=== PATIENT | male | born 1980 | race Caucasian/White ===

== ENCOUNTER 2019-12-30 10:55 | Outpatient (CLI) | payer BC, SELFPAY ==
[2019-12-31 14:27] LABS: COVID-19 RT-PCR Result NEGATIVE (Negative)
== END 2019-12-30 11:15 ==
PROVIDERS: Visit Provider Family Medicine
DX: Z11.59 Encounter for screening for other viral diseases (principal)
CPT/HCPCS: U0003

== ENCOUNTER 2020-04-13 03:16 | Outpatient (CLI) | payer BC, SELFPAY ==
[2020-04-13 09:18] LABS: ALT 67 U/L (16-63); AST 30 U/L (15-37); Albumin 4.5 g/dL (3.4-5.0); Alkaline Phosphatase 93 U/L (46-116); Anion Gap 7.3 mmol/L (3-11); BUN 12 mg/dL (7-18); Bilirubin, Total 1.2 mg/dL (0.2-1.0); CO2 28.7 mmol/L (21.0-32.0); CREATININE 0.96 mg/dL (0.70-1.30); Calcium 9.1 mg/dL (8.5-10.1); Calculated LDL 126 mg/dL (<100); Chloride 102 mmol/L (98-107); Cholesterol 191 mg/dL (<200); Glucose 104 mg/dL (74-106); HDL Cholesterol 50 mg/dL (40-60); Potassium 3.9 mmol/L (3.5-5.1); Sodium 138 mmol/L (136-145); Total Protein 7.5 g/dL (6.4-8.2); Triglyceride 75 mg/dL (<150)
== END 2020-04-13 03:36 ==
DX: Z00.00 Encounter for general adult medical examination without abnormal findings (principal); Z13.220 Encounter for screening for lipoid disorders
CPT/HCPCS: 36415; 80053; 80061

== ENCOUNTER 2020-09-17 20:43 | Outpatient (REF) | payer BC, SELFPAY ==
[2020-09-19 22:57] LABS: Campylobacter PCR Negative (Negative); Salmonella PCR Negative (Negative); Shiga Toxin PCR Negative (Negative); Shigella/Enteroinvasive Ecoli Negative (Negative)
== END 2020-09-17 20:44 | disposition home or self-care (01) ==
LOC: LBN 20:43
PROVIDERS: Visit Provider Nurse Practitioner Family
DX: R19.7 Diarrhea, unspecified (principal); A07.1 Giardiasis [lambliasis]
CPT/HCPCS: 87505; 87177

== ENCOUNTER 2020-10-14 15:08 | Outpatient (CLI) | payer BC, SELFPAY ==
--- NOTE | 2020-10-14 11:45 | DI.MRI_ITS ---
Exam(s) MR LUMBAR SPINE WO EXAM: MR LUMBAR SPINE WO CLINICAL HISTORY: M54.5 low back pain R15.9 fecal incontinenece. TECHNIQUE: Multiplanar multisequence MRI of the Lumbar spine was performed. COMPARISON: No exams were available for comparison FINDINGS: Bones: The last intervertebral disc space is designated the L5/S1 level for the numbering purpose of this examination. The vertebral body heights are well maintained. Alignment is satisfactory. The si gnal characteristics are unremarkable. Cord: The conus tip ends at the T12 level. It is of normal size and signal intensity. T12-L1: No disc herniations or bulges are present. Schmorl's node superior endplate T12. L1-2: No disc herniations or bulges are present. L2-3: No disc herniations or bulges are present. L3-4: No disc herniations or bulges are present. L4-5: No disc herniations or bulges are present. Minimal facet joint degenerative changes. L5-S1: Mild loss of disc height and partial disc desiccation. Small focal right paracentral disc pro trusion may contact the right S1 nerve root.. Soft tissues: The visualized SI joints and sacrum are well maintained. The paraspinal soft tissues ar e unremarkable. IMPRESSION: Small right paracentral disc protrusion at L5-S1. No evidence of significant spinal stenosis or neur oforaminal narrowing. DATA REPOSITORY:
== END 2020-10-14 15:28 ==
PROVIDERS: Visit Provider Nurse Practitioner
DX: M51.27 Other intervertebral disc displacement, lumbosacral region (principal); R15.9 Full incontinence of feces
CPT/HCPCS: 72148

== ENCOUNTER 2021-04-12 07:39 | Outpatient (CLI) | payer BC, SELFPAY ==
[2021-04-12 07:55] LABS: HCT 40.3 % (40.0-50.0); HGB 13.4 g/dL (13.5-17.5); MCH 31.2 pg (27.0-33.0); MCHC 33.3 % (32.0-36.0); MCV 93.9 fL (80-95); MPV 9.3 fL (8.0-11.0); Platelet Count 245 10^3/uL (130-400); RBC 4.29 10^6/uL (4.36-5.78); RDW 12.9 % (11.8-14.1); RDW-SD 44.6 fL; WBC 6.93 10^3/uL (4.4-10.8)
[2021-04-12 09:21] LABS: ALT 54 U/L (16-63); AST 59 U/L (15-37); Albumin 4.2 g/dL (3.4-5.0); Alkaline Phosphatase 131 U/L (46-116); Anion Gap 9.8 mmol/L (3-11); BUN 17 mg/dL (7-18); Bilirubin, Total 0.7 mg/dL (0.2-1.0); CO2 28.2 mmol/L (21.0-32.0); Chloride 104 mmol/L (98-107); Glucose 105 mg/dL (74-106); Potassium 4.3 mmol/L (3.5-5.1); Sodium 142 mmol/L (136-145); TSH (W/Ref FT4) 1.75 uIU/mL (0.36-3.74); Total Protein 7.6 g/dL (6.4-8.2)
[2021-04-12 09:59] LABS: Iron 110 ug/dL (65-175)
[2021-04-12 10:16] LABS: Ferritin 240 ng/mL (26-388)
== END 2021-04-12 07:40 | disposition home or self-care (01) ==
LOC: LBO 07:41
DX: R53.83 Other fatigue (principal); E03.9 Hypothyroidism, unspecified; G47.00 Insomnia, unspecified
CPT/HCPCS: 36415; 80053; 85027; 82728; 83540; 84443

== ENCOUNTER 2021-08-17 18:48 | Outpatient (CLI) | payer BC, SELFPAY ==
--- NOTE | 2021-08-17 12:15 | DI.RAD_ITS ---
Exam(s) XR CHEST 2V PA LATERAL EXAM: XR CHEST 2V PA LATERAL CLINICAL HISTORY: cough, reflux R05.9 TECHNIQUE: 2D digital imaging was performed. COMPARISON: No exams were available for comparison FINDINGS: MEDIASTINUM: Normal. HEART: Normal. PULMONARY VASCULATURE: Normal. LUNGS: Clear. PLEURAL SPACE: No pleural effusion or pneumothorax. BONE:Unremarkable for age. IMPRESSION: No acute abnormality. DATA REPOSITORY: RADIATION DOSE DELIVERED:
== END 2021-08-17 19:08 ==
PROVIDERS: Visit Provider Physician Assistant
DX: R05.8 Other specified cough (principal)
CPT/HCPCS: 71046

== ENCOUNTER 2021-09-26 02:26 | Outpatient (CLI) | payer BC, SELFPAY ==
[2021-09-26 12:12] LABS: Source Nasal/Nares
[2021-09-26 15:42] LABS: COVID-19 PCR Negative (Negative)
== END 2021-09-26 02:27 | disposition home or self-care (01) ==
LOC: LBO 02:26
PROVIDERS: Visit Provider Surgery
DX: Z20.822 Contact with and (suspected) exposure to COVID-19 (principal); Z01.818 Encounter for other preprocedural examination
CPT/HCPCS: 87635

== ENCOUNTER 2021-09-28 10:55 | Day surgery (SDC) | payer BC, SELFPAY ==
--- NOTE | 2021-09-27 11:04 | NUR.NOTE ---
Nursing Note: 09/27/21 Attempted to contact patient with preop information/questions; phone number provided not in service. Left voicemails for both primary and secondary contacts to provide alternate phone number for patient if available.
--- NOTE | 2021-09-28 06:55 | W.PM.ENDDOP ---
Date of service: 09/28/21 Time of Service: 12:44 Endoscopy Report DATE OF PROCEDURE: 09/28/21 PRE-OP DIAGNOSIS: GERD POST-OP DIAGNOSIS: same (with esophagitis) PROCEDURE: EGD with biopsies SURGEON: Teresita Amaya ANESTHESIA TYPE: General:No Airway ESTIMATED BLOOD LOSS: 2 PATHOLOGY: other (antrum bx, Distal esophagus bx) COMPLICATIONS: None DISPOSITION: same day INDICATIONS: Osvaldo is a pleasant 41-year-old gentleman with a history of reflux since about age 19.? He was on long-term PPI but he stopped it because of concerns of the side effects from long-term use.? He is taken Pepcid for the last week [id number] does not feel like that has helped him.? His reflux is pretty severe at this time with acid coming up into the back of his throat at nighttime.? He is already got a wedge pillow under his mattress.? We again discussed lifestyle changes and recommendation for repeat EGD to look for H. pylori.? If there is lot of inflammation and evidence of reflux then he may benefit from manometry and pH study for possible antireflux surgery. Risks, benefits and complications have been reviewed. Complications include but are not limited to bleeding, pain, perforation, sore throat, aspiration, and adverse reaction to the medications.? Questions were entertained and answered to their satisfaction and they wished to proceed. No guarantees were given or implied. Proceed with EGD under sedation PROCEDURE DESCRIPTION: After informed consent was obtained the patient was take to the procedure room and placed in a supine position. Monitors were applied and a time out was done. The patients name, date of , procedure type, allergies to medications and metal in their body was reviewed. A bite block was placed and the patient was sedated. Once sedated and comfortable the gastroscope was advanced through the oropharynx which was grossly normal into the esophagus. The proximal and mid-esophagus were normal. In the distal esophagus there was inflammation noted. The scope was advanced into the stomach and through the pylorus into the 3rd portion of the duodenum. The duodenum was noted to be normal. The scope was retracted back into the stomach and biopsies were done to rule out H. pylori. There were no ulcers. The scope was retroflexed. The cardia and fundus were noted to be normal. There was a small sliding hiatal hernia noted. The scope was retracted back into the esophagus and biopsies were done of the GE junction to rule out Florentino's. The Z line was regular. The GE junction was at 35 cm. The scope was removed and the patient was woken up and taken back to [facility] in stable condition. Follow up: I will start the patient on Omeprazole. Follow up in 2 weeks
--- NOTE | 2021-09-28 06:56 | W.PM.DSUDISC ---
Discharge Plan Disposition Patient Disposition: HOME Condition: Good Discharge Details Reason For Visit: EGD Attending Provider: Teresita Amaya Primary Care Provider: Amy Betancur Home Meds and New Rx's Prescriptions: New omeprazole 40 mg capsule,delayed release(DR/EC) 40 mg PO DAILY Qty: 30 3RF Continued loratadine [Claritin] 10 mg tablet 10 mg PO DAILY PRN (Reason: allergy symptoms) Qty: 90 3RF metformin 500 mg tablet 500 mg PO DAILY Label Comments: Prescribed by a provider through [facility] Ozempic 0.25 mg or 0.5 mg(2 mg/1.5 mL) pen injector 1 mg subcut QWEEK bupropion HCl 150 mg tablet sustained-release 12 hr 300 mg PO DAILY escitalopram oxalate [Lexapro] 20 mg Tablet 20 mg PO acetaminophen 500 mg Tablet 1,000 mg ibuprofen 200 mg Tablet 600 mg PO Q6H PRN Discharge Instructions Instructions: Diet for Stomach Ulcers and Gastritis (ED), Esophagitis (DC) Additional Instructions: Findings: inflammation in the esophagus due to reflux Follow up: 2 weeks in the office Please call if you develop: fevers >101.5 Nausea or Vomiting Abdominal pain that is not transient Rectal bleeding that is more then a tbsp A hard abdomen and inability to pass gas DAY SURGERY UNIT POST ENDOSCOPY INSTRUCTIONS Instructions for everyone who is given Anesthesia: For your safety, please do the following for the next 24 Hours: a. Do not drive or operate dangerous equipment b. Do not drink alcohol beverages or use any recreational drugs for the first 24 hours or while taking pain medications. The medications in your body may have a reaction that can be dangerous. c. Do not make any important decisions or sign any important papers 1. Generally there are no restrictions on your activity after a day or so has gone by, but you may feel a bit fatigued for a few days. 2. After you arrive home you may have a light meal and return to a normal diet as you can tolerate it without feeling sick to your stomach. 3. After surgery, you may feel pain or discomfort. This should be only transient, but if it persists please contact your doctor. 4. If there are any questions regarding the findings of your procedure, please feel free to contact your doctor. 6. If you are unable to contact your doctor with a problem, contact the hospital at [phone]. 7. Continue all your regular medications unless directed otherwise. I understand the above instructions and have no questions. Signature of Patient or Responsible Adult Escort Date/Time Name of Responsible Adult Escort Signature of Nurse Date/Time Referrals: Teresita Amaya MD [ [facility] STAFF PHYSICIAN] - Activity:: Activity as Tolerated Diet:: low acid Discharge Orders Discharge Orders: Discharge Order (Routine); Ordered 09/28/21 Ordered By: Teresita Amaya
[2021-09-28 11:10] VITALS: BP 137/83; PULSE 66; RESP 22; TEMP 36.2; O2SAT 98
[2021-09-28] MEDS: Lactated Ringers 1,000 ML 80 ML IV (11:15)
--- NOTE | 2021-09-28 11:34 | W.ANESPRE ---
General Info Date of Service Date Performed: 09/28/21 Height: 5 ft 11 in Weight: 112.5 kg Body Mass Index (BMI): 34.6 Surgical Procedure: Operation Date: 09/28/21 12:20 Proposed Procedure Side Surgeon p Gastroscopy Teresita Amaya MD Meds Allergies and Home Medications Allergies Allergy/AdvReac Type Severity Reaction Status Date / Time Environmental Allergy Intermediate Nasal Uncoded 09/28/21 11:18 congestion Home Medication Medication Instructions Recorded loratadine 10 mg tablet (Claritin) 10 mg PO DAILY PRN allergy 02/10/20 symptoms #90 tabs bupropion HCl 150 mg tablet,12 hr 300 mg PO DAILY 04/18/21 sustained-release metformin 500 mg tablet 500 mg PO DAILY intiated by 07/18/21 calibrate semaglutide 0.25 mg or 0.5 mg (2 1 mg subcut QWEEK Initiated by 07/18/21 mg/1.5 mL) subcutaneous pen calibrate - increased to 1mg last injector (Ozempic) acetaminophen 500 mg tablet 1,000 mg 09/28/21 escitalopram oxalate 20 mg tablet 20 mg PO 09/28/21 (Lexapro) ibuprofen 200 mg tablet 600 mg PO Q6H PRN 09/28/21 Current Visit Medications: Current Medications Generic Name Dose Route Start Last Admin Trade Name Jesus PRN Reason Stop Dose Admin Hyoscyamine Sulfate 0.125 mg 09/28/21 06:57 Hyoscyamine 0.125 Mg Sl/Oral/Chew SL DIRECTED PRN Ringer's Solution 1,000 mls @ 80 mls/hr 09/28/21 06:00 09/28/21 11:15 IV 10/27/21 23:59 80 mls/hr INFUSION FLORENCIA Administration IV Miscellaneous Supplies 1 each 09/28/21 06:00 Iv Access IV 10/27/21 23:59 DIRECTED FLORENCIA Ondansetron HCl 4 mg 09/28/21 06:57 Ondansetron 4 Mg/2 Ml Vial IVP Q4H PRN PRN Nausea / Vomiting Sodium Chloride 0 ml 09/28/21 06:00 Normal Saline Flush 10 Ml Syr IV 10/27/21 23:59 PRN PRN Sodium Chloride 0 ml 09/28/21 06:00 Normal Saline 10 Ml Vial IJ 10/27/21 23:59 DIRECTED PRN Sterile Water 0 ml 09/28/21 06:00 Water,Injection,Sterile 10 Ml Vial IJ 10/27/21 23:59 DIRECTED PRN PFSH Active Problems Active Problems: Problem Status Onset Code GERD (gastroesophageal reflux disease) K21.9 Obesity (BMI 30-39.9) E66.9 Medical History Medical History Acne vulgaris Anxiety and depression Elevated BP without diagnosis of hypertension Fatigue Fecal incontinence Increased body mass index (BMI) Low back pain PTSD (post-traumatic stress disorder) Seasonal allergies Urinary incontinence Surgical History Surgical History (Updated 09/28/21 @ 11:18 by Rocío Veliz RN) History of esophagogastroduodenoscopy (EGD) (~2018) Hx of knee surgery Left knee Hx of thumb surgery childhood, R thumb Tobacco Smoking/Tobacco Use Status: Never Second hand exposure: No Alcohol Alcohol Intake: current Alcohol intake frequency: a few times a week Alcohol type: beer Substance Use Substance use: Never Substance use type: does not use Vital Signs and Lab Results Vital Signs Most Recent Vital Signs in EMR: Most Recent Vital Signs Temp Pulse Resp BP Pulse Ox 36.2 C L 66 22 137/83 98 09/28/21 11:10 09/28/21 11:10 09/28/21 11:10 09/28/21 11:10 09/28/21 11:10 Lab Results Blood Type / Crossmatch: No Data to Display Complete Blood Count: No Data to Display Complete Metabolic Panel: No Data to Display Liver Function Panel: No Data to Display Coagulation Panel: No Data to Display Cardiac Panel: No Data to Display Arterial Blood Gas: No Data to Display Venous Blood Gas: No Data to Display Pancreas Panel: No Data to Display Thyroid Panel: No Data to Display Infectious Disease: Coronavirus (COVID-19)(PCR) Negative (Negative) 09/26/21 11:25 Coronavirus 2019 Source Nasal/Nares 09/26/21 11:25 Blood Cultures: No Data to Display Toxicology Panel: No Data to Display Anesthesia Assessment and Plan Anesthesia History Personal History: No History of Anesthesia Complications Family History: No Family History of Anesthesia Complications Exercise Tolerance Exercise Tolerance: Metabolic Equivalents>4 Pertinent Negatives Pertinent Negatives: No Symptoms of GERD (Feeling of fullness upper abdomen, Pepcid 20 mg IV at 1152), No Major Cardiovascular Symptoms or Complaints, No Major Pulmonary Symptoms or Complaints and No History of CVA/TIA Cardiac & Pulmonary Exam Cardiac Exam: Normal S1/S2 Heart Sounds Pulmonary Exam: Clear Bilateral Breath Sounds Implantable Cardiac Device Does patient have a Pacemaker or an ICD?: No Airway Exam Known Difficult Airway: No Mallampati Class: 2 Mouth Opening: Narrow (< 3cm) Thyromental Distance: Greater than 3 cm Facial Hair: Full [place] (Partial [place]) Neck Range of Motion: Full ROM Neck Circumference: Normal Teeth Condition: Normal Dentition (Broken crown left lower, nothing loose per pt. ) ASA Classification ASA Score: ASA 2 Emergency Case?: No NPO Status NPO Status: NPO Clears >2 hours, Solids >8 hours Anesthesia Plan Resuscitation Status: Full Code Anesthesia Technique: General Anesthesia Airway Planned: Natural Airway Monitors Used: Standard Monitors
[2021-09-28 11:36] VITALS: BMI 34.6
--- NOTE | 2021-09-28 12:32 | STOM_PTH ---
PATIENT: Osvaldo Del Rio LOC: [facility] U#:[id number] AGE/SX: 41/M ROOM: RE09/28/[address]: Teresita Amaya MD : 1980 BED: DIS: 09/28/2021 SPEC #: [id number] RECD: 09/28/21 16:02 STATUS: [facility] #: [id number] MARGOT: 09/28/21 12:[address]: Teresita Amaya DEPT: Surgical Specimen RECD BY: Citlaly Rogers ENTERED: 09/28/21 16:03 SP TYPE: STOMACH OTHR DR: Amy Betancur APRN Tissues: 1 - STOMACH BIOPSY 2 - ESOPHAGUS BIOPSY Procedures: GROSS AND MICRO LEVEL 4 Comments: [id number]
[2021-09-28 12:40] VITALS: BP 120/93; PULSE 95; RESP 20; TEMP 36.9; O2SAT 96
[2021-09-28 13:10] VITALS: BP 121/90; PULSE 69; RESP 18; TEMP 36.2; O2SAT 98
--- NOTE | 2021-09-28 14:12 | W.ANESPOSTOP ---
Postoperative Evaluation Date, Time and Location Date Performed: 09/28/21 Time Performed: 13:15 Patient Location: Day Surgery Unit Vital Signs Most Recent Imported Vital Signs: Most Recent Vital Signs Temp Pulse Resp BP Pulse Ox 36.2 C L 69 18 121/90 98 09/28/21 13:10 09/28/21 13:10 09/28/21 13:10 09/28/21 13:10 09/28/21 13:10 Pain Score Most Recent Pain Score: Most Recent Pain Score Pain Level 0 09/28/21 13:10 Assessment Mental Status: Awake (Alert & Oriented to Patient Baseline) Airway and Respiratory Function: Patent airway with normal (patient baseline) respiratory exam Cardiovascular Function: Hemodynamically Stable Hydration Status: Adequately Hydrated Nausea & Vomiting: No Nausea or Vomiting Pain: Pt. Denies Any Pain Peripheral Nerve Block: Patient did not receive a nerve block
== END 2021-09-28 13:37 | disposition home or self-care (01) ==
PROVIDERS: Visit Provider Surgery
PROC: 0DJ68ZZ Inspection of Stomach, Via Natural or Artificial Opening Endoscopic (ICD-10-PCS; CPT 43235; principal; 2021-09-28 12:15)
DX: K21.00 Gastro-esophageal reflux disease with esophagitis, without bleeding (principal); K44.9 Diaphragmatic hernia without obstruction or gangrene; K31.89 Other diseases of stomach and duodenum; K22.89 Other specified disease of esophagus
CPT/HCPCS: 43239; 88305

== ENCOUNTER 2021-10-08 15:20 | Emergency (ER) | payer BC, SELFPAY ==
[2021-10-08 15:24] VITALS: BP 129/94; PULSE 89; RESP 18; TEMP 36.3; O2SAT 98
[2021-10-08 15:31] VITALS: RESP 18
--- NOTE | 2021-10-08 16:01 | W.ED.GENAD ---
Discharge Plan Disposition Patient Disposition: HOME Condition: Stable Discharge Details Clinical Impression: Difficulty refilling prescriptions Primary Care Provider: Amy Betancur ED Provider: Anneliese Knapp Home Meds and New Rx's Prescriptions: New escitalopram oxalate 20 mg tablet 20 mg PO DAILY Qty: 30 0RF bupropion HCl [Wellbutrin SR] 150 mg tablet sustained-release 12 hr 300 mg PO DAILY Qty: 30 0RF No Action loratadine [Claritin] 10 mg tablet 10 mg PO DAILY PRN (Reason: allergy symptoms) Qty: 90 3RF metformin 500 mg tablet 500 mg PO DAILY Label Comments: Prescribed by a provider through [facility] Ozempic 0.25 mg or 0.5 mg(2 mg/1.5 mL) pen injector 1 mg subcut QWEEK bupropion HCl 150 mg tablet sustained-release 12 hr 300 mg PO DAILY escitalopram oxalate [Lexapro] 20 mg Tablet 20 mg PO DAILY acetaminophen 500 mg Tablet 1,000 mg PO PRN PRN ibuprofen 200 mg Tablet 600 mg PO Q6H PRN omeprazole 40 mg capsule,delayed release(DR/EC) 40 mg PO DAILY Qty: 30 3RF Discharge Instructions Instructions: Medicine Refill (ED) Additional Instructions: You were given a paper prescription for your antidepressants. Please take them as directed. Follow up with primary care provider in 3-5 days. Return to ED sooner if any worsening or concerns. Increase oral fluids. Referrals: Amy Betancur, [employer] [Primary Care Provider] - 5 days Discharge Data Discharge Date/Time-TO BE ENTERED AT DEPARTURE: 10/08/21 16:09 Medical Decision Making Patient given prescriptions for escitalopram and Wellbutrin. Patient has no physical complaints. Patient discharged HPI General Mode of arrival: ambulatory. Date/Time Provider Initiated Documentation: 10/08/21 15:27. Limitations to Documentation: no limitations. Information obtained by: patient, RN notes reviewed and old records reviewed. HPI Narrative: 41-year-old male presents to the ER with chief complaint of prescription refill. He reports that he last took his Lexapro and Wellbutrin today. He is going out of town and is unable to get it filled at the local pharmacy. No other complaints at this time. He has a past medical history of GERD, obesity, anxiety and depression PTSD. Related Data Home Medications Medication Instructions Recorded Confirmed loratadine 10 mg tablet (Claritin) 10 mg PO DAILY PRN allergy 02/10/20 10/08/21 symptoms #90 tabs bupropion HCl 150 mg tablet,12 hr 300 mg PO DAILY 04/18/21 10/08/21 sustained-release metformin 500 mg tablet 500 mg PO DAILY intiated by 07/18/21 10/08/21 calibrate semaglutide 0.25 mg or 0.5 mg (2 1 mg subcut QWEEK Initiated by 07/18/21 10/08/21 mg/1.5 mL) subcutaneous pen calibrate - increased to 1mg last injector (Ozempic) acetaminophen 500 mg tablet 1,000 mg PO PRN PRN 09/28/21 10/08/21 escitalopram oxalate 20 mg tablet 20 mg PO DAILY 09/28/21 10/08/21 (Lexapro) ibuprofen 200 mg tablet 600 mg PO Q6H PRN 09/28/21 10/08/21 omeprazole 40 mg capsule,delayed 40 mg PO DAILY #30 caps 09/28/21 10/08/21 release bupropion HCl 150 mg tablet,12 hr 300 mg PO DAILY #30 tabs 10/08/21 sustained-release (Wellbutrin SR) escitalopram oxalate 20 mg tablet 20 mg PO DAILY #30 tabs 10/08/21 Previous Rx's Medication Instructions Recorded loratadine 10 mg tablet (Claritin) 10 mg PO DAILY PRN allergy 02/10/20 symptoms #90 tabs omeprazole 40 mg capsule,delayed 40 mg PO DAILY #30 caps 09/28/21 release bupropion HCl 150 mg tablet,12 hr 300 mg PO DAILY #30 tabs 10/08/21 sustained-release (Wellbutrin SR) escitalopram oxalate 20 mg tablet 20 mg PO DAILY #30 tabs 10/08/21 Allergies Allergy/AdvReac Type Severity Reaction Status Date / Time Environmental Allergy Intermediate Nasal Uncoded 09/28/21 11:18 congestion General Stated Complaint: GenMedical MAC: 5 Review of Systems Narrative: Here for medication refill All systems reviewed & are unremarkable except as noted in HPI and below PFSH All Active Problems (Updated 10/08/21 @ 16:06 by Anneliese Knapp NP) GERD (gastroesophageal reflux disease) (Chronic) Obesity (BMI 30-39.9) (Acute) Difficulty refilling prescriptions (Acute) Medical History (Updated 10/08/21 @ 16:06 by Anneliese Knapp NP) Acne vulgaris Anxiety and depression Elevated BP without diagnosis of hypertension Fatigue Fecal incontinence Increased body mass index (BMI) Low back pain PTSD (post-traumatic stress disorder) Seasonal allergies Urinary incontinence Surgical History (Updated 09/28/21 @ 11:18 by Rocío Veliz RN) History of esophagogastroduodenoscopy (EGD) (~2018) Hx of knee surgery Left knee Hx of thumb surgery childhood, R thumb Family History Mother No problems noted. Father No problems noted. Sister No problems noted. Maternal Grandfather , 80'S No problems noted. Paternal Grandfather , 80'S No problems noted. Maternal Grandmother , 90'S No problems noted. Paternal Grandmother , 80'S Alzheimer disease Social History Smoking/Tobacco Use Status: Never Second Hand Exposure: No Smoking risk assessment performed?: Yes Alcohol Intake: current Alcohol Intake frequency: holidays/special occasions only Alcohol type: beer Drug use: Never Substance use type: does not use Caregiver/Support person: No Household members: none Housing: house Pets and animals: Yes Pets and animals: dog(s) Sexually active: Yes Do you think of yourself as: straight/heterosexual Current gender identity: male How often do you talk on the phone with friends or family?: once per week How often do you get together with friends or relatives?: never How often do you attend druze or mormonism services?: 1-3 times per year Do you belong to any clubs or organized social groups?: no Panel score (0-1 are the most socially isolated patients): 0 What type of physical activity do you participate in: walking, aerobic, resistance training, running and yoga Duration: 45-60 minutes/day Frequency: 5-6 times per week Grisel/Episcopal: Gnosticism Special grisel needs: No Seatbelt use: always Drive intox 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 Appears stated age. Normal body habitus. Head: Normocephalic, no trauma. Musculoskeletal: Normal gait, 5/5 strength to all four extremities. Skin: No suspicious rashes or lesions. Capillary refill less than 2 sec. Neurologic: Cranial nerves II-XII intact. Alert and oriented x 3. Hematologic/Lymphatic: No ecchymosis, no lymphadenopathy. Course Vital Signs Vital signs: Vital Signs Temperature 36.3 C L 10/08/21 15:24 Pulse 89 10/08/21 15:24 Respiratory Rate 18 10/08/21 15:24 Blood Pressure 129/94 H 10/08/21 15:24 Pulse Oximetry 98 10/08/21 15:24 Temperature 36.3 C L 10/08/21 15:24 Temperature Source Temporal Artery Scan 10/08/21 15:24 Pulse 89 10/08/21 15:24 Respiratory Rate 18 10/08/21 15:31 Respiratory Effort Non-Labored 10/08/21 15:31 Respiratory Depth Normal 10/08/21 15:31 Respiratory Pattern Normal 10/08/21 15:31 Blood Pressure 129/94 H 10/08/21 15:24 Blood Pressure Position Sitting 10/08/21 15:24 Pulse Oximetry 98 10/08/21 15:24 Oxygen Delivery Method Room Air 10/08/21 15:24 Oxygen Flow Rate 0 10/08/21 15:24
== END 2021-10-08 16:09 | disposition home or self-care (01) ==
PROVIDERS: Emergency Provider Registered Nurse Emergency
DX: F32.A Depression, unspecified (principal); F41.9 Anxiety disorder, unspecified; Z76.0 Encounter for issue of repeat prescription
CPT/HCPCS: 99283

== ENCOUNTER 2022-05-09 20:54 | Outpatient (REF) | payer BC, SELFPAY ==
[2022-05-09 21:05] LABS: Abs Immature Grans 0.01 10^3/uL (0.0-0.06); Absolute Basophil Count 0.04 10^3/uL (0.0-0.2); Absolute Eosinophil Count 0.13 10^3/uL (0.0-0.7); Absolute Lymphocyte Count 2.98 10^3/uL (1.2-3.4); Absolute Monocyte Count 0.48 10^3/uL (0.1-0.8); Absolute Neutrophil Count 1.83 10^3/uL (1.2-6.7); Basophils % 0.7; Eosinophils % 2.4; HCT 41.8 % (40.0-50.0); HGB 14.3 g/dL (13.5-17.5); Immature Grans % 0.2; Lymphocytes % 54.5; MCH 31.4 pg (27.0-33.0); MCHC 34.2 % (32.0-36.0); MCV 92 fL (80-95); MPV 10.4 fL (8.0-11.0); Monocytes % 8.8; Neutrophils % 33.4; Platelet Count 246 10^3/uL (130-400); RBC 4.56 10^6/uL (4.36-5.78); RDW 12.3 % (11.8-14.1); RDW-SD 41.2 fL; WBC 5.47 10^3/uL (4.4-10.8)
[2022-05-09 21:19] LABS: COMMENT (LAB VIEW ONLY) 62.57 mg/dL; Microalb ug/mg Crea 17.9 ug/mg Cr
[2022-05-09 21:33] LABS: ALT 55 U/L (16-63); AST 48 U/L (15-37); Albumin 4.9 g/dL (3.4-5.0); Alkaline Phosphatase 116 U/L (46-116); Anion Gap 8.2 mmol/L (3-11); BUN 11 mg/dL (7-18); Bilirubin, Total 0.8 mg/dL (0.2-1.0); CO2 29.8 mmol/L (21.0-32.0); CREATININE 1.1 mg/dL (0.70-1.30); Calcium 10.1 mg/dL (8.5-10.1); Chloride 103 mmol/L (98-107); Estimated GFR 86.49 (mL/min/1.73m2); Glucose 91 mg/dL (74-106); Potassium 4.2 mmol/L (3.5-5.1); Sodium 141 mmol/L (136-145); TSH (W/Ref FT4) 1.73 uIU/mL (0.36-3.74); Total Protein 7.9 g/dL (6.4-8.2)
== END 2022-05-09 20:55 | disposition home or self-care (01) ==
LOC: LBN 20:54
PROVIDERS: PCP Nurse Practitioner Family; Visit Provider Nurse Practitioner Family
DX: R53.83 Other fatigue (principal); R03.0 Elevated blood-pressure reading, without diagnosis of hypertension; K21.9 Gastro-esophageal reflux disease without esophagitis; E66.8 Other obesity; F41.8 Other specified anxiety disorders
CPT/HCPCS: 80053; 82043; 82570; 84443; 85025

== ENCOUNTER 2022-09-26 14:29 | Outpatient (CLI) | payer BC, SELFPAY ==
--- NOTE | 2022-09-26 14:15 | RT.EKG_ITS ---
APPROVED REPORT Exam: Resting ECG Reason for Exam: fatigue, weakness Patient Location: O HR:73 bpm ECG Measurements Heart Rate 73 AXIS GA 175 P 55 QRSd 94 QRS 54 QT 358 T 39 QTc 395 Conclusion Sinus rhythm...normal P axis, V-rate 50- 99 Probable left atrial enlargement...P >50mS, <-0.10mV V1 Otherwise normal ECG
== END 2022-09-26 14:30 | disposition home or self-care (01) ==
LOC: DI.CM 14:30
PROVIDERS: PCP Nurse Practitioner Family; Visit Provider Nurse Practitioner Family
DX: R53.83 Other fatigue (principal)
CPT/HCPCS: 93010

== ENCOUNTER 2022-09-26 21:50 | Outpatient (REF) | payer BC, SELFPAY ==
[2022-09-26 21:44] LABS: Abs Immature Grans 0.02 10^3/uL (0.0-0.06); Absolute Basophil Count 0.05 10^3/uL (0.0-0.2); Absolute Eosinophil Count 0.47 10^3/uL (0.0-0.7); Absolute Lymphocyte Count 2.95 10^3/uL (1.2-3.4); Absolute Monocyte Count 0.71 10^3/uL (0.1-0.8); Basophils % 0.6; Eosinophils % 5.9; HCT 39.8 % (40.0-50.0); HGB 13.6 g/dL (13.5-17.5); Immature Grans % 0.3; Lymphocytes % 37.3; MCH 31.3 pg (27.0-33.0); MCHC 34.2 % (32.0-36.0); MCV 92 fL (80-95); Neutrophils % 46.9; Platelet Count 276 10^3/uL (130-400); RBC 4.35 10^6/uL (4.36-5.78); RDW 12.5 % (11.8-14.1); RDW-SD 41.6 fL
[2022-09-26 21:57] LABS: ALT 135 U/L (16-63); AST 74 U/L (15-37); Albumin 4.2 g/dL (3.4-5.0); Alkaline Phosphatase 165 U/L (46-116); Anion Gap 9.9 mmol/L (3-11); BUN 21 mg/dL (7-18); Bilirubin, Total 0.6 mg/dL (0.2-1.0); C-Reactive Protein 0.27 mg/dL (0.0-0.3); CO2 28.1 mmol/L (21.0-32.0); Calcium 9.8 mg/dL (8.5-10.1); Chloride 103 mmol/L (98-107); Estimated GFR 96.97 (mL/min/1.73m2); Glucose 93 mg/dL (74-106); Potassium 4.2 mmol/L (3.5-5.1); Sodium 141 mmol/L (136-145); TSH (W/Ref FT4) 2.02 uIU/mL (0.36-3.74); Total Protein 7.8 g/dL (6.4-8.2)
[2022-09-26 22:02] LABS: ESR 8 mm/hr (0-15)
[2022-09-28 10:07] LABS: Lyme Ab w Rflx to Lyme Confirm Negative (Negative)
[2022-09-28 10:15] LABS: Cyclic Citrullinated Peptide <2.5 U/mL (<5.0)
[2022-09-28 13:33] LABS: ANA Interpretation Negative (Negative)
[2022-09-30 19:21] LABS: Anaplasma phagocytophilum Negative (Negative); B. miyamotoi PCR Negative (Negative); Babesia divergens/MO-1 Negative (Negative); Babesia duncani Negative (Negative); Babesia microti Negative (Negative); Ehrlichia chaffeensis Negative (Negative); Ehrlichia ewingii/canis Negative (Negative); Ehrlichia muris eauclairensis Negative (Negative)
== END 2022-09-26 21:51 | disposition home or self-care (01) ==
LOC: LBN 21:50
PROVIDERS: PCP Nurse Practitioner Family; Visit Provider Nurse Practitioner Family
DX: M25.50 Pain in unspecified joint (principal); R79.89 Other specified abnormal findings of blood chemistry
CPT/HCPCS: 80053; 85652; 86200; 87798; 84443; 85025; 86038; 86140; 86618

== ENCOUNTER 2022-10-16 15:10 | Outpatient (REF) | payer BC, SELFPAY ==
[2022-10-16 16:48] LABS: ALT 55 U/L (16-63); AST 32 U/L (15-37); Albumin 4.5 g/dL (3.4-5.0); Alkaline Phosphatase 193 U/L (46-116); Anion Gap 6.7 mmol/L (3-11); BUN 13 mg/dL (7-18); Bilirubin, Total 0.3 mg/dL (0.2-1.0); CO2 31.3 mmol/L (21.0-32.0); CREATININE 0.9 mg/dL (0.70-1.30); Calcium 9.5 mg/dL (8.5-10.1); Chloride 104 mmol/L (98-107); Estimated GFR 110.04 (mL/min/1.73m2); Glucose 99 mg/dL (74-106); Potassium 4.8 mmol/L (3.5-5.1); Sodium 142 mmol/L (136-145); Total Protein 7.6 g/dL (6.4-8.2)
[2022-10-18 10:50] LABS: Lab Add On Test DONE
[2022-10-18 11:05] LABS: Amylase 70 U/L (25-115); Lipase 34 U/L (16-77)
== END 2022-10-16 15:11 | disposition home or self-care (01) ==
LOC: LBN 15:10
PROVIDERS: PCP Nurse Practitioner Family; Visit Provider Nurse Practitioner Family
DX: R79.89 Other specified abnormal findings of blood chemistry (principal); R53.83 Other fatigue; R00.2 Palpitations
CPT/HCPCS: 80053; 83690; 82150

== ENCOUNTER 2022-10-19 00:48 | Outpatient (CLI) | payer BC, SELFPAY ==
--- NOTE | 2022-10-19 06:00 | ETT_ITS ---
APPROVED REPORT Exam: Exercise Treadmill Patient Location: Out-Patient Room/Bed: Stress Nurse: Marylu Rowell RN Ordering Provider:ISAÍAS SIMON DOROTHY, Contact Number: [phone] BMI: 38.62 Baseline Rhythm: Sinus Rhythm Indications: Chest tightness, SOB on exertion Medical History Medical History: GERD, obesity, HTN, SOB, palpitations, PTSD, Fatigue, anxiety, depression Cardiac Medications: Metformin, bupropion, albuterol succinate, pramipexole Allergies: None Cardiac Risk Factors: Family hx, asthma, obesity Previous Cardiac Procedures: None Pretest Chest Pain Characteristics: 07/17 chest ache Exercise History: Sedentary Physical Disabilities: None Lung Sounds: Clear to auscultation Heart Sounds: Regular Stress Test Details Test: Exercise stress testing was performed using a [place] protocol. Rest Stress HR Resting HR Supine: 64 bpm Max Heart Rate (APMHR): 179 bpm Resting HR Standin bpm Target HR (85% APMHR): 152 bpm Max HR Achieved: 164 bpm % of APMHR: 92 Recovery HR: 88 bpm HR response to stress: Normal HR response to stress BP Resting BP Supine: 138/82 mmHg Resting BP Standin/82 mmHg Max BP: 192/78 mmHg Recovery BP: 132/76 mmHg BP response to stress: Normal blood pressure response to stress. ECG Resting ECG: Sinus Rhythm Ectopy: None Stress ECG: Sinus Tachycardia ST Change: No significant ST segment changes noted Lead(s): , Maximum ST Deviation: 0 mm Arrhythmia: None Recovery ECG: Sinus Rhythm Recovery ST Change: No significant ST segment changes noted Recovery Arrhythmia: None Clinical Reason for Termination: Target HR Achieved, Dyspnea Stress Symptoms: General Fatigue, Dyspnea, Chest pain Exercise duration: 09 min42 sec Highest Stage Reached: Stage 4: 4.2 mph at 16% grade. Exercise capacity: 11.32 METs Angina Score: Non-Limiting Daniel Treadmill Score: 5.0 Rate Pressure Product: [id number] Stress ECG Conclusion 1. Resting electrocardiogram showed early repolarization and was within normal limits 2. Patient exercised on the [place] protocol and completed a workload of 11.32 METS 3. Normal heart rate and blood pressure response to exercise. Peak heart rate was 92% of predicted f or age 4. There was no electrocardiographic evidence of myocardial ischemia 5. There were no dysrhythmias Daniel Treadmill Score is 5.0 which is Low risk. Stress Test Summary STAGE Time (mins) Speed (mph) Grade (%) HR BP SpO2 SYMPTOMS METS Supine 64 138/82 98 4/10 chest pain Standing 61 132/82 98 4/10 chest pain 1 3 1.7 10 107 162/84 97 4/10 chest pain, mild SOB 4.5 2 6 2.5 12 129 170/90 93 4/10 chest pain ,mod SOB 7 3 9 3.4 14 135 4/10 chest pain, mod-severe SOB 10 4 12 4.2 16 162 13 1 min recovery 128 192/78 4/10 chest pain ,mod SOB 3 min recovery 92 178/7699 99 4/10 chest pain , mild SOB 6 min recovery 88 132/76 99 4/10 chest pain dyspnea resolved.
== END 2022-10-19 01:08 ==
LOC: DI 00:49
PROVIDERS: PCP Nurse Practitioner Family; Visit Provider Nurse Practitioner Family
DX: R06.02 Shortness of breath (principal); R07.89 Other chest pain
CPT/HCPCS: 93017

== ENCOUNTER 2022-10-26 08:45 | Outpatient (RCR) | payer BC, SELFPAY ==
--- NOTE | 2022-10-26 08:45 | HOLTER_ITS ---
APPROVED REPORT Conclusion This is a 48-hour Holter monitor ordered for palpitations Rhythm throughout is sinus. Average heart was 81. Minimum was 58, maximum 146 A total of 5 isolated PVCs were seen There were 23 premature atrial contractions There was no atrial fibrillation, no SVT, no high-grade AV block, no pauses greater than 3 seconds
== END 2022-11-06 23:59 | disposition home or self-care (01) ==
LOC: CARDOPNVT 08:45
PROVIDERS: PCP Nurse Practitioner Family; Visit Provider Nurse Practitioner Family
DX: R00.2 Palpitations (principal); I49.1 Atrial premature depolarization
CPT/HCPCS: 93225; 93226